=== PATIENT | male | born 1985 | race Caucasian/White ===

== ENCOUNTER 2017-08-08 16:06 | Observation (INO) ==
[2017-08-08] MEDS ORDERED: 0.9 % Sodium Chloride 1,000 ML IVC ONE (16:43)
--- NOTE | 2017-08-08 16:45 | Emergency Department Note ---
Disposition Clinical Impression: Suicidal ideation Depression Qualifiers: Depression Type: major depressive disorder Major depression recurrence: recurrent Active/Remission status: remission status unspecified Qualified Code(s ): F33.9 - Major depressive disorder, recurrent, unspecified Elevated ETOH level Qualifiers: Blood alcohol level: 120-199 mg/100 ml Qualified Code(s): Y90.6 - Blood alcohol level of 120-199 mg/100 ml Disposition: Still a Patient Condition: Serious Referrals: NONE,PCP [Primary Care Provider] - Joel Fitzgerald [Family Provider] - Forms: ED Satisfaction Letter Time of Disposition: 22:46 Psych HPI - General Chief Complaint: ED Psychiatric Symptoms Stated Complaint: SI Time Seen by Provider: 08/08/17 16:30 Source: patient Nursing Notes Reviewed: Yes Vital Signs Reviewed: Yes - History of Present Illness HPI Narrative: 31-year-old male comes emergency Department due to suicidal ideations. Has history of bipolar disorder and schizophrenia. He has been off his medications for several months and admits to daily alcohol use drinking upwards of 30 beers a day and using methamphetamine frequently. Last methamphetamine use was 2 days ago. His last alcoholic beverage was at 2 AM. He reports feeling like he wants to kill himself by jumping off a bridge. No direct access to weapons. He denies any recent toxic ingestions. Pt complaint: suicidal ideation, feels depressed If medical clearance, reason: psychiatric condition Onset (ago): day(s) Duration: constant History of similar episodes: Yes Improves with: none Worsens with: alcohol, drug use Context: recent alcohol abuse, recent drug abuse Alleged intoxication: No Associated Psychiatric Symptoms: suicidal ideation, anxiety Associated symptoms: Reports: denies other symptoms Traumatic symptoms: denies traumatic injury Treatments prior to arrival: none Self harm or harm to others: admits thoughts of self harm, has plan Details of Plan: Jumping from a height - Related Data Allergies Allergy/AdvReac Type Severity Reaction Status Date / Time No Known Allergies Allergy Verified 08/08/17 16:20 All systems ED: reviewed and negative except as stated. Constitutional: Denies: fever, chills Cardiovascular: Denies: chest pain, palpitations Respiratory: Denies: cough, dyspnea Gastrointestinal: Denies: abdominal pain, nausea Psychiatric: Reports: anxiety Past Medical History - Past Medical History Attestation: Yes The following information was validated with the patient. Medical history: Reports: no medical history Psychiatric history: Reports: anxiety, bipolar, depression, schizophrenia - Social History Smoking Status: Current every day smoker Smokeless Tobacco Status: No Alcohol use: Reports: occasionally Drug use: Reports: methamphetamine Physical Exam Appears anxious - General Limitations: no limitations General appearance: alert, in no apparent distress - Head Head exam: atraumatic, normocephalic - Eye Eye exam: Present: normal appearance, PERRL - ENT ENT exam: normal exam, mucous membranes dry - Neck Neck exam: Present: normal inspection, full ROM. Absent: tenderness - Chest Chest inspection: Absent: normal inspection - Respiratory Respiratory exam: Present: normal lung sounds bilaterally, respiratory distress. Absent: wheezes - Cardiovascular Cardiovascular exam: Present: tachycardia. Absent: regular rate - Abdominal Exam Abdominal exam: Present: soft, Non-Tender. Absent: tenderness - Extremities Exam Extremities exam: Present: normal capillary refill - Neurological Exam Neurological exam: Present: alert, oriented X3 - Psychiatric Psychiatric exam: Present: agitated, anxious - Skin Skin exam: Present: warm, dry Course - Reevaluation(s) Reevaluation #1: Alcohol level is now down to 42. His initial CIWA score was 10. We will repeat the CIWA now and if it is stable or lower and will pursue psychiatric admission. If this or is climbing then will plan on medical admission to monitor for DTs Time: 21:31 Reevaluation #2: CIWA score now 7 Awaiting 1A evaluation Time: 21:54 Reevaluation #3: Awaiting placement for psychiatric admission Time: 22:46 Vital Signs Temperature 98.8 F 08/08/17 16:17 Pulse Rate 137 08/08/17 16:17 Respiratory Rate 18 08/08/17 16:17 Blood Pressure 148/95 08/08/17 16:17 O2 Sat by Pulse Oximetry 96 08/08/17 16:17 Temperature 98.1 F 08/08/17 18:18 Pulse Rate 122 08/08/17 18:18 Respiratory Rate 18 08/08/17 18:18 Blood Pressure 142/89 08/08/17 18:18 O2 Sat by Pulse Oximetry 96 08/08/17 18:18 Oxygen Delivery Oxygen Delivery Room Air Psych - Lab Data Result diagrams: 08/08/17 16:38 08/08/17 16:38 Lab Results 08/08/17 08/08/17 08/08/17 Range/Units 16:30 16:30 16:38 WBC 15.1 H (4.3-11.1) K/mcL RBC 5.52 H (4.19-5.50) M/mcL Hgb 15.4 (12.9-16.9) g/dL Hct 46.6 (37.5-50.1) % MCV 84.4 (83.0-100.0) fL MCH 27.9 L (28.0-33.3) pg MCHC 33.0 (31.6-35.5) g/dL RDW 13.9 (11.5-14.5) % Plt Count 464 H (140-400) K/mcL MPV 9.2 L (9.4-12.4) fL Immature Gran % 0.4 (0-4) % Seg Neutrophils % 65.1 % Lymphocytes % 24.7 % Monocytes % 5.4 % Eosinophils % 3.1 % Basophils % 1.3 % Neutrophils # 9.9 H (1.6-8.9) K/mcL Lymphocytes # 3.7 (0.6-4.6) K/mcL Monocytes # 0.8 (0.0-1.3) K/mcL Eosinophils # 0.5 (0.0-0.6) K/mcL Basophils # 0.2 (0.0-0.2) K/mcL Sodium (136-145) mEq/L Potassium (3.5-4.5) mEq/L Chloride (98-109) mEq/L Carbon Dioxide (19-29) mEq/L BUN (8-26) mg/dL Creatinine (0.72-1.25) mg/dL Est GFR ( Amer) (> 60) Est GFR (Non-Af Amer) (> 60) BUN/Creatinine Ratio (6-26) Glucose (70-99) mg/dL Calculated Osmolality (280-300) Calcium (8.6-10.8) mg/dL Magnesium (1.6-2.6) mg/dL Urine Color Yellow (Yellow) Urine Clarity Clear (Clear) Urine pH 6.0 (5.0-8.0) pH Units Ur Specific [place] 1.015 (1.010-1.025) Urine Protein Negative (Neg-Trace) mg/dL Urine Glucose (UA) Normal (Normal) mg/dL Urine Ketones Negative (Negative) mg/dL Urine Blood Negative (Negative) Urine Nitrite Negative (Negative) Urine Bilirubin Negative (Negative) Urine Urobilinogen Normal (Normal) mg/dL Ur Leukocyte Esterase Negative (Negative) Salicylates (15-30) mg/dL Urine Opiates Screen Negative (Uvajng=923) ng/mL Acetaminophen (10-30) mcg/mL Ur Barbiturates Screen Negative (Laikqt=619) ng/mL Ur Phencyclidine Scrn Negative (Cutoff=25) ng/mL Ur Amphetamines Screen Negative (Aexksi=6354) ng/mL U Benzodiazepines Scrn Negative (Zywqgv=637) ng/mL Urine Cocaine Screen Negative (Cutoff= 300) ng/mL U Marijuana (THC) Screen Negative (Cutoff = 50) ng/mL Ethyl Alcohol (0-10) mg/dL 08/08/17 08/08/17 Range/Units 16:38 20:58 WBC (4.3-11.1) K/mcL RBC (4.19-5.50) M/mcL Hgb (12.9-16.9) g/dL Hct (37.5-50.1) % MCV (83.0-100.0) fL MCH (28.0-33.3) pg MCHC (31.6-35.5) g/dL RDW (11.5-14.5) % Plt Count (140-400) K/mcL MPV (9.4-12.4) fL Immature Gran % (0-4) % Seg Neutrophils % % Lymphocytes % % Monocytes % % Eosinophils % % Basophils % % Neutrophils # (1.6-8.9) K/mcL Lymphocytes # (0.6-4.6) K/mcL Monocytes # (0.0-1.3) K/mcL Eosinophils # (0.0-0.6) K/mcL Basophils # (0.0-0.2) K/mcL Sodium 142 (136-145) mEq/L Potassium 3.7 (3.5-4.5) mEq/L Chloride 105 (98-109) mEq/L Carbon Dioxide 26 (19-29) mEq/L BUN 11 (8-26) mg/dL Creatinine 0.75 (0.72-1.25) mg/dL Est GFR ( Amer) > 60 (> 60) Est GFR (Non-Af Amer) > 60 (> 60) BUN/Creatinine Ratio 15 (6-26) Glucose 132 H (70-99) mg/dL Calculated Osmolality 295 (280-300) Calcium 9.4 (8.6-10.8) mg/dL Magnesium 2.4 (1.6-2.6) mg/dL Urine Color (Yellow) Urine Clarity (Clear) Urine pH (5.0-8.0) pH Units Ur Specific [place] (1.010-1.025) Urine Protein (Neg-Trace) mg/dL Urine Glucose (UA) (Normal) mg/dL Urine Ketones (Negative) mg/dL Urine Blood (Negative) Urine Nitrite (Negative) Urine Bilirubin (Negative) Urine Urobilinogen (Normal) mg/dL Ur Leukocyte Esterase (Negative) Salicylates < 5.0 L (15-30) mg/dL Urine Opiates Screen (Akcthp=408) ng/mL Acetaminophen < 1.0 L (10-30) mcg/mL Ur Barbiturates Screen (Klogpj=770) ng/mL Ur Phencyclidine Scrn (Cutoff=25) ng/mL Ur Amphetamines Screen (Yjnptp=5659) ng/mL U Benzodiazepines Scrn (Cvxyhz=057) ng/mL Urine Cocaine Screen (Cutoff= 300) ng/mL U Marijuana (THC) Screen (Cutoff = 50) ng/mL Ethyl Alcohol 183 H 42 H (0-10) mg/dL Psychiatric Medical Clearance - Medical Clearance Checklist Medical History: Suicidal ideation (Acute) Depression (Acute) Elevated ETOH level (Acute) No Social History Section defined Current Vitals: Last Vital Signs Temp 98.1 F 08/08/17 18:18 Pulse 122 08/08/17 18:18 Resp 18 08/08/17 18:18 BP 142/89 08/08/17 18:18 Pulse Ox 96 08/08/17 18:18 Psychiatric Lab Panel: Drug Levels and Toxicity 08/08/17 08/08/17 08/08/17 16:30 16:38 20:58 Urine Opiates Screen Negative Acetaminophen < 1.0 L Ur Barbiturates Screen Negative Ur Phencyclidine Scrn Negative Ur Amphetamines Screen Negative U Benzodiazepines Scrn Negative Urine Cocaine Screen Negative U Marijuana (THC) Screen Negative Ethyl Alcohol 183 H 42 H Abnormal Labs: Abnormal lab results WBC 15.1 K/mcL (4.3-11.1) H 08/08/17 16:38 RBC 5.52 M/mcL (4.19-5.50) H 08/08/17 16:38 MCH 27.9 pg (28.0-33.3) L 08/08/17 16:38 Plt Count 464 K/mcL (140-400) H 08/08/17 16:38 MPV 9.2 fL (9.4-12.4) L 08/08/17 16:38 Neutrophils # 9.9 K/mcL (1.6-8.9) H 08/08/17 16:38 Glucose 132 mg/dL (70-99) H 08/08/17 16:38 Salicylates < 5.0 mg/dL (15-30) L 08/08/17 16:38 Acetaminophen < 1.0 mcg/mL (10-30) L 08/08/17 16:38 Ethyl Alcohol 42 mg/dL (0-10) H 08/08/17 20:58 Statement of Medical Clearance: I have evaluated the patient, reviewed diagnostic information, and certify that the patient's medical condition is sufficiently stable that transfer to the psychiatric unit does not pose a significant risk of deterioration. Alcohol - Lab Data Result diagrams: 08/08/17 16:38 08/08/17 16:38 Lab Results 08/08/17 08/08/17 08/08/17 Range/Units 16:30 16:30 16:38 WBC 15.1 H (4.3-11.1) K/mcL RBC 5.52 H (4.19-5.50) M/mcL Hgb 15.4 (12.9-16.9) g/dL Hct 46.6 (37.5-50.1) % MCV 84.4 (83.0-100.0) fL MCH 27.9 L (28.0-33.3) pg MCHC 33.0 (31.6-35.5) g/dL RDW 13.9 (11.5-14.5) % Plt Count 464 H (140-400) K/mcL MPV 9.2 L (9.4-12.4) fL Immature Gran % 0.4 (0-4) % Seg Neutrophils % 65.1 % Lymphocytes % 24.7 % Monocytes % 5.4 % Eosinophils % 3.1 % Basophils % 1.3 % Neutrophils # 9.9 H (1.6-8.9) K/mcL Lymphocytes # 3.7 (0.6-4.6) K/mcL Monocytes # 0.8 (0.0-1.3) K/mcL Eosinophils # 0.5 (0.0-0.6) K/mcL Basophils # 0.2 (0.0-0.2) K/mcL Sodium (136-145) mEq/L Potassium (3.5-4.5) mEq/L Chloride (98-109) mEq/L Carbon Dioxide (19-29) mEq/L BUN (8-26) mg/dL Creatinine (0.72-1.25) mg/dL Est GFR ( Amer) (> 60) Est GFR (Non-Af Amer) (> 60) BUN/Creatinine Ratio (6-26) Glucose (70-99) mg/dL Calculated Osmolality (280-300) Calcium (8.6-10.8) mg/dL Magnesium (1.6-2.6) mg/dL Urine Color Yellow (Yellow) Urine Clarity Clear (Clear) Urine pH 6.0 (5.0-8.0) pH Units Ur Specific [place] 1.015 (1.010-1.025) Urine Protein Negative (Neg-Trace) mg/dL Urine Glucose (UA) Normal (Normal) mg/dL Urine Ketones Negative (Negative) mg/dL Urine Blood Negative (Negative) Urine Nitrite Negative (Negative) Urine Bilirubin Negative (Negative) Urine Urobilinogen Normal (Normal) mg/dL Ur Leukocyte Esterase Negative (Negative) Salicylates (15-30) mg/dL Urine Opiates Screen Negative (Lizjvn=687) ng/mL Acetaminophen (10-30) mcg/mL Ur Barbiturates Screen Negative (Ajupqa=869) ng/mL Ur Phencyclidine Scrn Negative (Cutoff=25) ng/mL Ur Amphetamines Screen Negative (Izsmnu=7067) ng/mL U Benzodiazepines Scrn Negative (Yyxanl=209) ng/mL Urine Cocaine Screen Negative (Cutoff= 300) ng/mL U Marijuana (THC) Screen Negative (Cutoff = 50) ng/mL Ethyl Alcohol (0-10) mg/dL 08/08/17 08/08/17 Range/Units 16:38 20:58 WBC (4.3-11.1) K/mcL RBC (4.19-5.50) M/mcL Hgb (12.9-16.9) g/dL Hct (37.5-50.1) % MCV (83.0-100.0) fL MCH (28.0-33.3) pg MCHC (31.6-35.5) g/dL RDW (11.5-14.5) % Plt Count (140-400) K/mcL MPV (9.4-12.4) fL Immature Gran % (0-4) % Seg Neutrophils % % Lymphocytes % % Monocytes % % Eosinophils % % Basophils % % Neutrophils # (1.6-8.9) K/mcL Lymphocytes # (0.6-4.6) K/mcL Monocytes # (0.0-1.3) K/mcL Eosinophils # (0.0-0.6) K/mcL Basophils # (0.0-0.2) K/mcL Sodium 142 (136-145) mEq/L Potassium 3.7 (3.5-4.5) mEq/L Chloride 105 (98-109) mEq/L Carbon Dioxide 26 (19-29) mEq/L BUN 11 (8-26) mg/dL Creatinine 0.75 (0.72-1.25) mg/dL Est GFR ( Amer) > 60 (> 60) Est GFR (Non-Af Amer) > 60 (> 60) BUN/Creatinine Ratio 15 (6-26) Glucose 132 H (70-99) mg/dL Calculated Osmolality 295 (280-300) Calcium 9.4 (8.6-10.8) mg/dL Magnesium 2.4 (1.6-2.6) mg/dL Urine Color (Yellow) Urine Clarity (Clear) Urine pH (5.0-8.0) pH Units Ur Specific [place] (1.010-1.025) Urine Protein (Neg-Trace) mg/dL Urine Glucose (UA) (Normal) mg/dL Urine Ketones (Negative) mg/dL Urine Blood (Negative) Urine Nitrite (Negative) Urine Bilirubin (Negative) Urine Urobilinogen (Normal) mg/dL Ur Leukocyte Esterase (Negative) Salicylates < 5.0 L (15-30) mg/dL Urine Opiates Screen (Evxvvc=601) ng/mL Acetaminophen < 1.0 L (10-30) mcg/mL Ur Barbiturates Screen (Idyhre=823) ng/mL Ur Phencyclidine Scrn (Cutoff=25) ng/mL Ur Amphetamines Screen (Ueujte=1368) ng/mL U Benzodiazepines Scrn (Huavpr=332) ng/mL Urine Cocaine Screen (Cutoff= 300) ng/mL U Marijuana (THC) Screen (Cutoff = 50) ng/mL Ethyl Alcohol 183 H 42 H (0-10) mg/dL
[2017-08-08 16:46] LABS: Basophils # 0.2 K/mcL (0.0-0.2); Basophils % 1.3 %; Eosinophils # 0.5 K/mcL (0.0-0.6); Eosinophils % 3.1 %; Hematocrit 46.6 % (37.5-50.1); Hemoglobin 15.4 g/dL (12.9-16.9); Immature Granulocytes % 0.4 % (0-4); Lymphocytes # 3.7 K/mcL (0.6-4.6); Lymphocytes % 24.7 %; Mean Corpuscular Hemoglobin 27.9 pg (28.0-33.3); Mean Corpuscular Volume 84.4 fL (83.0-100.0); Mean Platelet Volume 9.2 fL (9.4-12.4); Monocytes # 0.8 K/mcL (0.0-1.3); Monocytes % 5.4 %; Neutrophils # 9.9 K/mcL (1.6-8.9); Platelet Count 464 K/mcL (140-400); Red Blood Count 5.52 M/mcL (4.19-5.50); Red Cell Distribution Width 13.9 % (11.5-14.5); Segmented Neutrophils % 65.1 %
[2017-08-08 16:47] LABS: Bilirubin,Urine Negative (Negative); Blood,Urine Negative (Negative); Clarity,Urine Clear (Clear); Color,Urine Yellow (Yellow); Glucose,Urine (UA) Normal (Normal); Ketones,Urine Negative (Negative); Leukocyte Esterase,Urine Negative (Negative); Nitrite,Urine Negative (Negative); Protein,Urine Negative (Neg-Trace); Specific Gravity,Urine 1.015 (1.010-1.025); Urobilinogen,Urine Normal (Normal)
[2017-08-08] MEDS ORDERED: Magnesium Sulfate 2 GM in D5% in Water 100 ML IVPB ONE (16:51)
[2017-08-08] MEDS ORDERED: Thiamine (B-1) 100 MG in D5% in Water 50 ML IVPB ONE (16:51)
[2017-08-08] MEDS ORDERED: Folic Acid 1 MG TABLET PO STA (16:51)
[2017-08-08 16:53] LABS: Amphetamine Screen,Urine Negative ng/mL (Cutoff=1000); Barbiturate Screen,Urine Negative ng/mL (Cutoff=200); Benzodiazepines Screen,Urine Negative ng/mL (Cutoff=200); Cannabinoid Screen,Urine Negative ng/mL (Cutoff = 50); Cocaine Screen,Urine Negative ng/mL (Cutoff= 300); Opiate Screen,Urine Negative ng/mL (Cutoff=300); Phencyclidine Screen,Urine Negative ng/mL (Cutoff=25)
[2017-08-08 16:59] LABS: BUN/Creatinine Ratio 15 (6-26); Blood Urea Nitrogen 11 mg/dL (8-26); Calcium 9.4 mg/dL (8.6-10.8); Carbon Dioxide 26 mEq/L (19-29); Chloride 105 mEq/L (98-109); Ethanol 183 mg/dL (0-10); Glucose 132 mg/dL (70-99); Osmolality,Calculated 295 (280-300); Potassium 3.7 mEq/L (3.5-4.5); Sodium 142 mEq/L (136-145); eGFR For African Americans > 60 (> 60); eGFR For Non-African Americans > 60 (> 60)
[2017-08-08 17:03] LABS: Acetaminophen < 1.0 mcg/mL (10-30); Salicylate < 5.0 mg/dL (15-30)
[2017-08-08 17:10] LABS: Magnesium 2.4 mg/dL (1.6-2.6)
[2017-08-08] MEDS ORDERED: Ringers Solution, Lactated 1,000 ML IVC ONE (18:00)
--- NOTE | 2017-08-08 18:03 | Emergency Department Note ---
Disposition Clinical Impression: Suicidal ideation Depression Qualifiers: Depression Type: major depressive disorder Major depression recurrence: recurrent Active/Remission status: remission status unspecified Qualified Code(s ): F33.9 - Major depressive disorder, recurrent, unspecified Elevated ETOH level Qualifiers: Blood alcohol level: 120-199 mg/100 ml Qualified Code(s): Y90.6 - Blood alcohol level of 120-199 mg/100 ml Disposition: Still a Patient Condition: Serious Referrals: NONE,PCP [Primary Care Provider] - Joel Fitzgerald [Family Provider] - Forms: ED Satisfaction Letter Time of Disposition: 21:17 Psych HPI - General Chief Complaint: ED Psychiatric Symptoms Stated Complaint: SI Time Seen by Provider: 08/08/17 16:30 Source: patient Nursing Notes Reviewed: Yes Vital Signs Reviewed: Yes - History of Present Illness HPI Narrative: 31-year-old male complains of depression and suicide ideation 2 days. Patient states he feels severely depressed and wants to end it all. Patient states he does not have a plan and seeking help. Patient states he is off his medications and drinks alcohol when he is not on his medications. Patient states he is drinking excessively and does not seem to be helping him Patient denies illicit drug use Pt complaint: suicidal ideation, feels depressed Duration: constant Improves with: none Worsens with: alcohol, drug use Associated symptoms: Reports: denies other symptoms Treatments prior to arrival: none - Related Data Allergies Allergy/AdvReac Type Severity Reaction Status Date / Time No Known Allergies Allergy Verified 08/08/17 16:20 All systems ED: reviewed and negative except as stated. Review of Systems: As Per HPI Constitutional: Denies: fever, chills Cardiovascular: Denies: chest pain, palpitations Respiratory: Denies: cough, dyspnea Gastrointestinal: Denies: abdominal pain, nausea Psychiatric: Reports: anxiety Past Medical History - Past Medical History Attestation: Yes The following information was validated with the patient. Source: patient, nursing notes reviewed Medical history: Reports: no medical history Psychiatric history: Reports: anxiety, bipolar, depression, schizophrenia - Social History Smoking Status: Current every day smoker Smokeless Tobacco Status: No Alcohol use: Reports: occasionally Drug use: Reports: methamphetamine Physical Exam Vital Signs Temperature 98.8 F 08/08/17 16:17 Pulse Rate 137 08/08/17 16:17 Respiratory Rate 18 08/08/17 16:17 Blood Pressure 148/95 08/08/17 16:17 O2 Sat by Pulse Oximetry 96 08/08/17 16:17 Temperature 98.8 F 08/08/17 16:17 Pulse Rate 129 08/08/17 17:19 Respiratory Rate 18 08/08/17 17:19 Blood Pressure 157/93 08/08/17 17:19 O2 Sat by Pulse Oximetry 93 08/08/17 17:19 Oxygen Delivery Oxygen Delivery Room Air 31-year-old male who is alert and oriented 3 and in no acute distress. Patient has tachycardia 137 beats minute - General Limitations: no limitations General appearance: alert, in no apparent distress - Head Head exam: atraumatic, normocephalic, normal inspection - Eye Eye exam: Present: normal appearance, PERRL, EOMI. Absent: scleral icterus - ENT ENT exam: normal exam, normal oropharynx, mucous membranes moist - Neck Neck exam: Present: normal inspection, full ROM, trachea midline - Chest Chest inspection: Present: normal inspection, symmetric chest wall rise. Absent : tenderness, rash - Respiratory Respiratory exam: Present: normal lung sounds bilaterally - Abdominal Exam Abdominal exam: Present: soft, Non-Tender. Absent: tenderness, distention, guarding, rebound, rigidity - Extremities Exam Extremities exam: Present: normal capillary refill Course Vital Signs Temperature 98.8 F 08/08/17 16:17 Pulse Rate 137 08/08/17 16:17 Respiratory Rate 18 08/08/17 16:17 Blood Pressure 148/95 08/08/17 16:17 O2 Sat by Pulse Oximetry 96 08/08/17 16:17 Temperature 98.1 F 08/08/17 18:18 Pulse Rate 122 08/08/17 18:18 Respiratory Rate 18 08/08/17 18:18 Blood Pressure 142/89 08/08/17 18:18 O2 Sat by Pulse Oximetry 96 08/08/17 18:18 Oxygen Delivery Oxygen Delivery Room Air Psych - MDM Narrative Medical decision making narrative: Depression and suicide ideation. Patient has medical clearance labs ordered. Ethanol level elevated at 183. Patient started on IV hydration, given 2 g magnesium and thiamine. CIWA assessment initiated. Score of 10 and was administered 0.5 mg Ativan. Patient will be monitored continually until his blood alcohol level gets below 80. Recheck ethanol level 42. Patient is clear for 1a evaluation - Lab Data Result diagrams: 08/08/17 16:38 08/08/17 16:38 Lab Results 08/08/17 08/08/17 08/08/17 Range/Units 16:30 16:30 16:38 WBC 15.1 H (4.3-11.1) K/mcL RBC 5.52 H (4.19-5.50) M/mcL Hgb 15.4 (12.9-16.9) g/dL Hct 46.6 (37.5-50.1) % MCV 84.4 (83.0-100.0) fL MCH 27.9 L (28.0-33.3) pg MCHC 33.0 (31.6-35.5) g/dL RDW 13.9 (11.5-14.5) % Plt Count 464 H (140-400) K/mcL MPV 9.2 L (9.4-12.4) fL Immature Gran % 0.4 (0-4) % Seg Neutrophils % 65.1 % Lymphocytes % 24.7 % Monocytes % 5.4 % Eosinophils % 3.1 % Basophils % 1.3 % Neutrophils # 9.9 H (1.6-8.9) K/mcL Lymphocytes # 3.7 (0.6-4.6) K/mcL Monocytes # 0.8 (0.0-1.3) K/mcL Eosinophils # 0.5 (0.0-0.6) K/mcL Basophils # 0.2 (0.0-0.2) K/mcL Sodium (136-145) mEq/L Potassium (3.5-4.5) mEq/L Chloride (98-109) mEq/L Carbon Dioxide (19-29) mEq/L BUN (8-26) mg/dL Creatinine (0.72-1.25) mg/dL Est GFR ( Amer) (> 60) Est GFR (Non-Af Amer) (> 60) BUN/Creatinine Ratio (6-26) Glucose (70-99) mg/dL Calculated Osmolality (280-300) Calcium (8.6-10.8) mg/dL Magnesium (1.6-2.6) mg/dL Urine Color Yellow (Yellow) Urine Clarity Clear (Clear) Urine pH 6.0 (5.0-8.0) pH Units Ur Specific [place] 1.015 (1.010-1.025) Urine Protein Negative (Neg-Trace) mg/dL Urine Glucose (UA) Normal (Normal) mg/dL Urine Ketones Negative (Negative) mg/dL Urine Blood Negative (Negative) Urine Nitrite Negative (Negative) Urine Bilirubin Negative (Negative) Urine Urobilinogen Normal (Normal) mg/dL Ur Leukocyte Esterase Negative (Negative) Salicylates (15-30) mg/dL Urine Opiates Screen Negative (Xubkub=489) ng/mL Acetaminophen (10-30) mcg/mL Ur Barbiturates Screen Negative (Tcszad=432) ng/mL Ur Phencyclidine Scrn Negative (Cutoff=25) ng/mL Ur Amphetamines Screen Negative (Mztxmb=6524) ng/mL U Benzodiazepines Scrn Negative (Owbvgo=282) ng/mL Urine Cocaine Screen Negative (Cutoff= 300) ng/mL U Marijuana (THC) Screen Negative (Cutoff = 50) ng/mL Ethyl Alcohol (0-10) mg/dL 08/08/17 08/08/17 Range/Units 16:38 20:58 WBC (4.3-11.1) K/mcL RBC (4.19-5.50) M/mcL Hgb (12.9-16.9) g/dL Hct (37.5-50.1) % MCV (83.0-100.0) fL MCH (28.0-33.3) pg MCHC (31.6-35.5) g/dL RDW (11.5-14.5) % Plt Count (140-400) K/mcL MPV (9.4-12.4) fL Immature Gran % (0-4) % Seg Neutrophils % % Lymphocytes % % Monocytes % % Eosinophils % % Basophils % % Neutrophils # (1.6-8.9) K/mcL Lymphocytes # (0.6-4.6) K/mcL Monocytes # (0.0-1.3) K/mcL Eosinophils # (0.0-0.6) K/mcL Basophils # (0.0-0.2) K/mcL Sodium 142 (136-145) mEq/L Potassium 3.7 (3.5-4.5) mEq/L Chloride 105 (98-109) mEq/L Carbon Dioxide 26 (19-29) mEq/L BUN 11 (8-26) mg/dL Creatinine 0.75 (0.72-1.25) mg/dL Est GFR ( Amer) > 60 (> 60) Est GFR (Non-Af Amer) > 60 (> 60) BUN/Creatinine Ratio 15 (6-26) Glucose 132 H (70-99) mg/dL Calculated Osmolality 295 (280-300) Calcium 9.4 (8.6-10.8) mg/dL Magnesium 2.4 (1.6-2.6) mg/dL Urine Color (Yellow) Urine Clarity (Clear) Urine pH (5.0-8.0) pH Units Ur Specific [place] (1.010-1.025) Urine Protein (Neg-Trace) mg/dL Urine Glucose (UA) (Normal) mg/dL Urine Ketones (Negative) mg/dL Urine Blood (Negative) Urine Nitrite (Negative) Urine Bilirubin (Negative) Urine Urobilinogen (Normal) mg/dL Ur Leukocyte Esterase (Negative) Salicylates < 5.0 L (15-30) mg/dL Urine Opiates Screen (Zvxynf=095) ng/mL Acetaminophen < 1.0 L (10-30) mcg/mL Ur Barbiturates Screen (Symxoj=255) ng/mL Ur Phencyclidine Scrn (Cutoff=25) ng/mL Ur Amphetamines Screen (Tpdfml=7426) ng/mL U Benzodiazepines Scrn (Qhhivq=885) ng/mL Urine Cocaine Screen (Cutoff= 300) ng/mL U Marijuana (THC) Screen (Cutoff = 50) ng/mL Ethyl Alcohol 183 H 42 H (0-10) mg/dL Psychiatric Medical Clearance - Medical Clearance Checklist Medical History: Suicidal ideation (Acute) Depression (Acute) Elevated ETOH level (Acute) No Social History Section defined Current Vitals: Last Vital Signs Temp 98.1 F 08/08/17 18:18 Pulse 122 08/08/17 18:18 Resp 18 08/08/17 18:18 BP 142/89 08/08/17 18:18 Pulse Ox 96 08/08/17 18:18 Psychiatric Lab Panel: Drug Levels and Toxicity 08/08/17 08/08/17 08/08/17 16:30 16:38 20:58 Urine Opiates Screen Negative Acetaminophen < 1.0 L Ur Barbiturates Screen Negative Ur Phencyclidine Scrn Negative Ur Amphetamines Screen Negative U Benzodiazepines Scrn Negative Urine Cocaine Screen Negative U Marijuana (THC) Screen Negative Ethyl Alcohol 183 H 42 H Abnormal Labs: Abnormal lab results WBC 15.1 K/mcL (4.3-11.1) H 08/08/17 16:38 RBC 5.52 M/mcL (4.19-5.50) H 08/08/17 16:38 MCH 27.9 pg (28.0-33.3) L 08/08/17 16:38 Plt Count 464 K/mcL (140-400) H 08/08/17 16:38 MPV 9.2 fL (9.4-12.4) L 08/08/17 16:38 Neutrophils # 9.9 K/mcL (1.6-8.9) H 08/08/17 16:38 Glucose 132 mg/dL (70-99) H 08/08/17 16:38 Salicylates < 5.0 mg/dL (15-30) L 08/08/17 16:38 Acetaminophen < 1.0 mcg/mL (10-30) L 08/08/17 16:38 Ethyl Alcohol 42 mg/dL (0-10) H 08/08/17 20:58 Attestation Statement - Attestation Attestation: I examined this patient and my medical decision-making was reviewed with the Resident Physician. I agree with the documented findings, disposition and treatment plan as described except to the extent set forth below.
[2017-08-08] MEDS ORDERED: *HR* LORazepam 2 MG/ML VIAL IVP ONE (18:49)
[2017-08-09] MEDS ORDERED: Ondansetron 4 MG/2 ML VIAL IVP PRN (05:47)
[2017-08-09] MEDS ORDERED: Acetaminophen 325 MG TABLET PO PRN (05:47)
[2017-08-09] MEDS ORDERED: Naloxone 0.4 MG/ML INJ IVP PRN (05:47)
[2017-08-09] MEDS ORDERED: Mag Hydrox/Al Hydrox/Simeth 30 ML UDC PO PRN (05:47)
[2017-08-09] MEDS: 0.9 % Sodium Chloride 1,000 ML IVC SCH ×2 (06:37→18:13)
--- NOTE | 2017-08-09 08:11 | Internal Med History&Physical ---
Date of Encounter: 08/09/17 Time of Encounter: 08:09 Assessment and Plan (1) Alcohol intoxication Current visit: Yes Status: Acute Blood alcohol level 180 on presentation. Trending down now. Continue supportive care with IV hydration. Multivitamins. Monitor for withdrawal. Moderate risk for complications. Qualifiers: Complication of substance-induced condition: uncomplicated Qualified Code(s ): F10.920 - Alcohol use, unspecified with intoxication, uncomplicated (2) Depression Current visit: Yes Status: Acute Patient appears depressed. He has not been on his medications for about 6 months. Consult psychiatry. Qualifiers: Depression Type: major depressive disorder Major depression recurrence: recurrent Active/Remission status: currently active Major depression episode severity: severe Psychotic features: without psychotic features Qualified Code(s): F33.2 - Major depressive disorder, recurrent severe without psychotic features (3) Suicidal ideation Current visit: Yes Status: Acute Consulted psychiatry for evaluation to see if patient needs admission to inpatient psych unit. Remains suicidal and depressed. Internal Medicine - H&P: HPI Chief complaint: Suicidal ideation Admitted From: Emergency Dept Plans for Post Hospital Care: Home History of present illness: Mr. Rosas is a 31 year old male patient with history of depression and prior suicidal attempt who has not been on his medications for at least 6 months presented to the ER with complaints of alcohol intoxication and suicidal ideation. Patient has been drinking heavily in the recent weeks. He denies any active plan but has been having thoughts of harming himself. He denies any hallucinations. Does have some tremors. No abdominal pain. No nausea or vomiting. Has a history of methamphetamine abuse. Last use was about 2-3 days back. Past Med Surg Social Fam HX - Past Medical History Attestation: Yes The following information was validated with the patient. Source: patient Medical history: no medical history, other (Psoriasis for which he takes etanercept) Psychiatric history: anxiety, bipolar, depression, prior suicide attempt, schizophrenia, previous psychiatric hospitalization - Social History Smoking Status: Current every day smoker Packs per day: 3 Smokeless Tobacco Status: No Alcohol use: heavy Drug use: methamphetamine - Family History Mother Living Status: Still Living Father Living Status: Still Living - Additional Family History Additional family history: Reviewed and found to be noncontributory at this time Internal Medicine - H&P: Meds Etanercept [Enbrel] 50 mg SQ QWEEK 08/09/17 [History] 3 Allergy/AdvReac Type Severity Reaction Status Date / Time No Known Allergies Allergy Verified 08/08/17 16:20 All Systems PM: A 10-system review of systems was performed and is negative for pertinent findings except as documented above in the HPI. - Constitutional Constitutional: no chills, no fever(s), no night sweats - EENT Eyes: no change in vision, no discharge, no pain, no photophobia Ears: no ear discharge, no ear pain, no tinnitus Nose, mouth and throat: no dysphagia, no nasal discharge, no neck pain, no sore throat - Cardiovascular Cardiovascular ROS IM: no chest pain, no diaphoresis, no dyspnea, no lightheadedness, no palpitations, no syncope - Respiratory Respiratory: no cough, no dyspnea, no wheezing, no excessive phlegm production - Gastrointestinal Gastrointestinal: no abdominal pain, no diarrhea, no hematemesis, no hematochezia, no melena, no nausea, no vomiting - Musculoskeletal Musculoskeletal ROS IM: no numbness, no tingling - Integumentary Integumentary IM: no rash, no unusual bruising - Neurological Neurological ROS: no confusion, no convulsions, no focal weakness, no numbness, no tingling, no tremor(s) - Psychiatric Psychiatric: depression, suicidal ideation - Hematologic/Lymphatic Hematologic/Lymphatic: no easy bruising - Constitutional Vitals: Temp Pulse Resp BP Pulse Ox 97.7 F 90 16 143/92 98 08/09/17 03:21 08/09/17 03:21 08/09/17 03:21 08/09/17 03:21 08/09/17 03:21 General appearance: Present: cooperative, A&O X 3, answers questions appropriately - Respiratory Respiratory exam: Present: CTAB. Absent: accessory muscle use, rales, rhonchi, wheezes - Cardiovascular Cardiovascular exam: Present: RRR, +S1, +S2. Absent: diastolic murmur, gallop, rubs, systolic murmur - GI/Abdominal GI/Abdominal exam: Present: normal bowel sounds, soft, no peritoneal signs. Absent: distended, tenderness - Extremities Exam Extremities exam: Present: warm, radial pulses palpable and symmetrical. Absent : calf tenderness, cyanotic, pedal edema - Neurological Exam Neurological exam: Present: alert, CN II-XII intact, oriented X3, no focal deficits. Absent: facial droop, speech deficit - Psychiatric Psychiatric exam: Present: depressed, flat affect, suicidal ideation - Skin Skin exam: Present: dry, intact Internal Med - H&P Results - Labs CBC & Chem 7: 08/08/17 16:38 08/08/17 16:38
[2017-08-09] MEDS: Thiamine (B-1) 100 MG TABLET PO SCH (10:09)
[2017-08-09] MEDS: Folic Acid 1 MG TABLET PO SCH (10:09)
[2017-08-09] MEDS: *HR* LORazepam 2 MG/ML VIAL IVP SCH ×3 (11:57→21:13)
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
--- NOTE | 2017-08-09 17:49 | Electrocardiograph Report ---
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
[2017-08-10 00:06] VITALS: BP 120/69
[2017-08-10] MEDS: *HR* LORazepam 2 MG/ML VIAL IVP SCH ×2 (02:25→05:44)
[2017-08-10 05:07] LABS: Hematocrit 40.5 % (37.5-50.1); Mean Corpuscular HGB Conc 32.8 g/dL (31.6-35.5); Mean Corpuscular Volume 85.3 fL (83.0-100.0); Mean Platelet Volume 9.8 fL (9.4-12.4); Platelet Count 350 K/mcL (140-400); Red Blood Count 4.75 M/mcL (4.19-5.50); Red Cell Distribution Width 13.7 % (11.5-14.5)
[2017-08-10 05:08] LABS: Hemoglobin 13.3 g/dL (12.9-16.9)
[2017-08-10 05:20] LABS: Alanine Aminotransferase 18 Units/L (0-55); Albumin/Globulin Ratio 0.9 (1.1-2.2); Alkaline Phosphatase 56 Units/L (38-126); Aspartate Amino Transferase 15 Units/L (5-34); BUN/Creatinine Ratio 10 (6-26); Bilirubin,Total 0.4 mg/dL (0.2-1.2); Blood Urea Nitrogen 7 mg/dL (8-26); Calcium 8.3 mg/dL (8.6-10.8); Carbon Dioxide 25 mEq/L (19-29); Chloride 108 mEq/L (98-109); Globulin 3.2 g/dL (2.4-3.5); Glucose 97 mg/dL (70-99); Osmolality,Calculated 290 (280-300); Sodium 141 mEq/L (136-145); Total Protein 6.2 g/dL (6.0-8.3); eGFR For African Americans > 60 (> 60); eGFR For Non-African Americans > 60 (> 60)
[2017-08-10] MEDS ORDERED: *HR* LORazepam 2 MG/ML VIAL IVP PRN (07:45)
--- NOTE | 2017-08-10 08:49 | Discharge Summary ---
Date of Encounter: 08/10/17 Time of Encounter: 08:47 - Discharge Diagnosis (1) Alcohol intoxication Priority: Primary Status: Acute Qualifiers: Complication of substance-induced condition: uncomplicated Qualified Code(s ): F10.920 - Alcohol use, unspecified with intoxication, uncomplicated (2) Depression Priority: Secondary Status: Acute Qualifiers: Depression Type: major depressive disorder Major depression recurrence: recurrent Active/Remission status: currently active Major depression episode severity: severe Psychotic features: without psychotic features Qualified Code(s): F33.2 - Major depressive disorder, recurrent severe without psychotic features (3) Suicidal ideation Priority: Secondary Status: Acute - Discharge Medications Home Medications: Etanercept [Enbrel] 50 mg SQ QWEEK 08/09/17 [History] Folic Acid 1 mg PO DAILY 08/10/17 [History] Thiamine (B-1) [Vitamin B-1] 100 mg PO DAILY 08/10/17 [History] Allergies/Adverse Reactions: 3 Allergy/AdvReac Type Severity Reaction Status Date / Time No Known Allergies Allergy Verified 08/08/17 16:20 Date of admission: 08/09/17 02:47 Primary care physician: PCP NONE Consults: 08/09/17 07:54 Consult to Psychiatry [CONS] Routine Consulting Provider: Psychiatry [place] Reason for Consult: Suicidal ideation Call Completed: Yes 08/09/17 08:04 Consult to [place] [CONS] Routine Reason for SW Consult: Alcohol withdrawal Discharging clinician: Thomas Díaz Anticipated date of discharge: 08/10/17 - Patient Status Disposition: Transfer Psychiatric Hosp Condition: Good Functional capacity at discharge: independent ambulation Overall status at discharge: patient is progressing back to baseline - Discharge Instructions Instructions: Depression (DC), Suicide Prevention for Adults (DC) Follow Up With: NONE,PCP [Primary Care Provider] - Joel Fitzgerald [Family Provider] - - Diet and Activity Activity: increase activity as tolerated Diet: advance to your usual diet Hospital course: Mr. Rosas is a 31 year old male patient with history of depression and prior suicidal attempt who has not been taking his medications recently presented to the ER with complaints of alcohol intoxication along with suicidal ideation. Patient had been drinking excessive amounts of alcohol and was having thoughts of harming himself. He was placed under observation and suicide precautions. He was treated with IV hydration and monitor for alcohol withdrawal. He was evaluated by psychiatry and recommended hospitalization to the inpatient psychiatric unit. Currently patient is clinically stable to be discharged from medical floor and to be admitted to inpatient psychiatric unit. Patient did not have significant symptoms of withdrawal from alcohol during his stay here. He remains depressed and continues to harbor suicidal ideation. - Time Spent with Patient Total time spent providing and/or coordinating discharge services: Less than 30 minutes (20 min) - Constitutional Vitals: Temp Pulse Resp BP Pulse Ox 98.6 F 100 16 120/69 96 08/10/17 00:05 08/10/17 00:05 08/10/17 00:05 08/10/17 00:05 08/10/17 00:05 General appearance: Present: cooperative, A&O X 3, answers questions appropriately - Respiratory Respiratory exam: Present: CTAB. Absent: accessory muscle use, rales, rhonchi, wheezes - Cardiovascular Cardiovascular exam: Present: RRR, +S1, +S2. Absent: diastolic murmur, gallop, rubs, systolic murmur - GI/Abdominal GI/Abdominal exam: Present: normal bowel sounds, soft, no peritoneal signs. Absent: distended, tenderness - Extremities Exam Extremities exam: Present: warm, radial pulses palpable and symmetrical. Absent : calf tenderness, cyanotic, pedal edema - Neurological Exam Neurological exam: Present: CN II-XII intact, oriented X3, no focal deficits. Absent: facial droop, speech deficit - Skin Skin exam: Present: dry, intact
[2017-08-10] MEDS: Thiamine (B-1) 100 MG TABLET PO SCH (10:58)
[2017-08-10] MEDS: Folic Acid 1 MG TABLET PO SCH (10:58)
== END 2017-08-10 12:15 ==
LOC: 3BNU 16:06 → EMEROO 16:06 → SUATTDRO 08-09 02:47 → 3BNU 08-09 02:48
PROVIDERS: ADMIT Family Medicine; ATTEND Internal Medicine

== ENCOUNTER 2017-08-10 11:22 | Inpatient (IN) ==
[2017-08-10] MEDS ORDERED: Haloperidol Lactate 5 MG/ML VIAL IM PRN (12:09)
[2017-08-10] MEDS ORDERED: MOM Conc 10 ML UD.LIQ PO PRN (12:09)
[2017-08-10] MEDS ORDERED: Mag Hydrox/Al Hydrox/Simeth 30 ML UDC PO PRN (12:09)
[2017-08-10] MEDS ORDERED: Ibuprofen 400 MG TABLET PO PRN (12:09)
[2017-08-10] MEDS ORDERED: *HR* LORazepam 1 MG TABLET PO PRN (12:09)
[2017-08-10] MEDS ORDERED: *HR* LORazepam 2 MG/ML VIAL IM PRN (12:09)
[2017-08-10] MEDS: Nicotine 21 MG PATCH.TD24 TD SCH (16:40)
[2017-08-11] MEDS: traZODone 50 MG TABLET PO PRN ×2 (01:02→21:35)
[2017-08-11] MEDS: hydrOXYzine pamoate 25 MG CAPSULE PO PRN ×2 (01:02→21:35)
[2017-08-11] MEDS: Nicotine 21 MG PATCH.TD24 TD SCH (09:05)
[2017-08-11] MEDS: Folic Acid 1 MG TABLET PO SCH (09:06)
[2017-08-11] MEDS: Thiamine (B-1) 100 MG TABLET PO SCH (09:07)
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
[2017-08-11] MEDS: OLANZapine 10 MG TAB.RAPDIS PO SCH (21:36)
[2017-08-12] MEDS: Folic Acid 1 MG TABLET PO SCH (08:10)
[2017-08-12] MEDS: Thiamine (B-1) 100 MG TABLET PO SCH (08:10)
[2017-08-12] MEDS: Nicotine 21 MG PATCH.TD24 TD SCH (08:10)
[2017-08-12] MEDS: FLUoxetine 20 MG CAPSULE PO SCH (08:10)
[2017-08-12 08:41] LABS: Hemoglobin A1C 5.6 %
--- NOTE | 2017-08-12 14:04 | Psychiatry Progress Note ---
Date of Encounter: 08/12/17 Time of Encounter: 14:02 Subjective Interval history: Patient still carving for alcohol and they are bad. He is depressed. he has not plans to kill self on unit. He went to the AA Meeting last night. He felt is was helpful. Groups are helpful. Review of Systems Psychiatric: Reports: depression, suicidal ideation, change in appetite, memory loss, difficulty concentrating, hopelessness Objective: Exam Patient orientation: Yes Person, Yes Time, Yes Place Level of alertness: Alert Patient appearance: Appropriate Behavior: nervous, anxious Psychomotor activity: Slowed Eye contact: Minimal Contact Mood description: Depressed, Anxious Affect description: dysphoric Speech pattern: Slowed, Impoverished Speech volume: Soft/Quiet Thought process: Intact Thought content: Yes Intact, Yes Paranoid delusion Judgment: Fair Insight: Partial Results - Vital Signs Vital Signs: Temp Pulse Resp BP 97.8 F 96 16 122/85 08/12/17 09:00 08/12/17 09:00 08/12/17 09:00 08/12/17 09:00 - Labs Labs: Laboratory Results - last 24 hr 08/12/17 08:03 Est Mean Plasma Glucose 114 Hemoglobin A1c 5.6 Assessment and Plan (1) Tobacco use Current visit: Yes Status: Acute Plan: Continue hospitalization Risks, benefits, side effects, alternatives discussed w/pt: Yes Patient agreeable to treatment: No (2) Cocaine dependence, uncomplicated Current visit: Yes Status: Chronic Plan: Continue hospitalization, Suicide Precautions per unit protocol, Encourage participation in unit milieu Additional Plan: find rehabilition Risks, benefits, side effects, alternatives discussed w/pt: Yes Patient agreeable to treatment: Yes (3) Other stimulant dependence, uncomplicated Current visit: Yes Status: Chronic Additional Plan: absiteince Risks, benefits, side effects, alternatives discussed w/pt: Yes Patient agreeable to treatment: Yes (4) Severe recurrent major depressive disorder with psychotic symptoms Current visit: Yes Status: Acute Plan: Suicide Precautions per unit protocol, Secure weapons Additional Plan: current regimen discussed Risks, benefits, side effects, alternatives discussed w/pt: Yes Patient agreeable to treatment: Yes (5) Suicidal ideation Current visit: No Status: Acute Plan: Suicide Precautions per unit protocol Risks, benefits, side effects, alternatives discussed w/pt: Yes Patient agreeable to treatment: Yes (6) Alcohol dependence with uncomplicated withdrawal Current visit: Yes Status: Acute Additional Plan: begin naltrexone Risks, benefits, side effects, alternatives discussed w/pt: Yes Patient agreeable to treatment: Yes Consult Discharge Plan - Plan Referrals: NONE,PCP [Primary Care Provider] -
[2017-08-12] MEDS: NALTREXONE HCL 50 MG TABLET PO SCH (19:08)
[2017-08-12] MEDS: OLANZapine 10 MG TAB.RAPDIS PO SCH (22:00)
[2017-08-12] MEDS: traZODone 50 MG TABLET PO PRN (22:00)
[2017-08-13] MEDS: FLUoxetine 20 MG CAPSULE PO SCH (08:37)
[2017-08-13] MEDS: Folic Acid 1 MG TABLET PO SCH (08:37)
[2017-08-13] MEDS: Nicotine 21 MG PATCH.TD24 TD SCH (08:38)
[2017-08-13] MEDS: Thiamine (B-1) 100 MG TABLET PO SCH (08:50)
--- NOTE | 2017-08-13 12:43 | Psychiatry Progress Note ---
Date of Encounter: 08/13/17 Time of Encounter: 12:40 Subjective Interval history: Still looks severely depressed. Face very sunken. Unhealthy appearance. Client reports he is still depressed but that suicidal thoughts have lessened. Prozac and Zyprexa seem to be working. Heavy alcohol use. Client estimates 40- 50 beers daily. Has been accepted by [facility] and client anticipates going there Tuesday or Tuesday next week. Client seems to want treatment. Has been years since he reached out for help. Review of Systems Constitutional: Denies: fever, chills, weakness, weight change Eyes: Denies: eye pain, vision change Ears, Nose, Throat: Denies: ear pain, throat pain, dental pain, hearing loss, congestion Cardiovascular: Denies: chest pain, palpitations, dyspnea on exertion Respiratory: Denies: cough, dyspnea, wheezes Gastrointestinal: Denies: abdominal pain, nausea, vomiting, diarrhea, constipation Musculoskeletal: Denies: joint swelling, joint pain Neurological: Denies: headache, weakness, numbness, memory loss Psychiatric: Reports: depression, suicidal ideation, change in appetite, memory loss, difficulty concentrating, hopelessness Objective: Exam Patient orientation: Yes Person, Yes Time, Yes Place Level of alertness: Alert Patient appearance: Appropriate Behavior: calm, cooperative Psychomotor activity: Slowed Eye contact: Maintains Eye Contact Mood description: Depressed Affect description: flat Speech pattern: Normal rate, Normal rhythm, Normal tone Speech volume: Normal Thought process: Linear Thought content: No Suicidal ideation, No Homicidal ideation, No Overt delusions Perceptual disturbances: No Auditory hallucinations, No Visual hallucinations Judgment: Limited Insight: Partial Results - Vital Signs Vital Signs: Temp Pulse Resp BP 97.6 F 88 18 104/77 08/13/17 09:00 08/13/17 09:00 08/13/17 09:00 08/13/17 09:00 Assessment and Plan (1) Severe recurrent major depressive disorder with psychotic symptoms Current visit: Yes Status: Acute Plan: Continue hospitalization, Close observation, Suicide Precautions per unit protocol, Encourage participation in unit milieu, Group Therapy, Monitor sleep, Monitor appetite Risks, benefits, side effects, alternatives discussed w/pt: Yes Patient agreeable to treatment: Yes (2) Alcohol dependence with uncomplicated withdrawal Current visit: Yes Status: Acute Plan: Continue hospitalization, Close observation, Suicide Precautions per unit protocol, Encourage participation in unit milieu, Group Therapy, Monitor sleep, Monitor appetite Risks, benefits, side effects, alternatives discussed w/pt: Yes Patient agreeable to treatment: Yes Consult Discharge Plan - Plan Referrals: [facility] [Outside] (You are going into residential substance abuse treatment at [facility] on discharge from the hospital. While there, clinic staff will open a case for you to become a client, and you will be seen daily by the clinic counselors and machine adjuster leader case trim, both individually and in group. Your mental health treatment needs will be addressed concurrently. You will also be scheduled to see the psychiatric provider for outpatient psychiatric assessment, evaluation of need for medication assisted treatment, and medication management. ) NONE,PCP [Primary Care Provider] -
[2017-08-13] MEDS: NALTREXONE HCL 50 MG TABLET PO SCH (18:28)
[2017-08-13] MEDS: traZODone 50 MG TABLET PO PRN (20:15)
[2017-08-13] MEDS: hydrOXYzine pamoate 25 MG CAPSULE PO PRN (20:16)
[2017-08-13] MEDS: OLANZapine 10 MG TAB.RAPDIS PO SCH (20:16)
[2017-08-14] MEDS: Nicotine 21 MG PATCH.TD24 TD SCH (09:12)
[2017-08-14] MEDS: Thiamine (B-1) 100 MG TABLET PO SCH (09:12)
[2017-08-14] MEDS: FLUoxetine 20 MG CAPSULE PO SCH (09:13)
[2017-08-14] MEDS: Folic Acid 1 MG TABLET PO SCH (09:13)
--- NOTE | 2017-08-14 10:28 | Psychiatry Progress Note ---
Date of Encounter: 08/14/17 Time of Encounter: 10:23 Subjective Interval history: Client complaining of heart burn this morning. Took a prn but also says this happens to him a lot. Unsurprising given heavy alcohol use. Will order scheduled Pepcid. Otherwise, he is clinically the same as yesterday. Endorses depressed mood but denies SI. Committed to rehab. Has been accepted by [facility] and he is expected to be discharged there tomorrow provided they call with an open bed. Staff were expecting to get an update on their openings Tuesday but did not hear anything. Client looks physically unwell. Not complaining of anything beyond GERD but he looks gaunt. Recovery period will be long. Review of Systems Constitutional: Denies: fever, chills, weakness, weight change Eyes: Denies: eye pain, vision change Ears, Nose, Throat: Denies: ear pain, throat pain, dental pain, hearing loss, congestion Cardiovascular: Denies: chest pain, palpitations, dyspnea on exertion Gastrointestinal: Reports: other Musculoskeletal: Denies: joint swelling, joint pain Neurological: Denies: headache, weakness, numbness, memory loss Psychiatric: Reports: depression, suicidal ideation, change in appetite, memory loss, difficulty concentrating, hopelessness Objective: Exam Patient orientation: Yes Person, Yes Time, Yes Place Level of alertness: Alert Patient appearance: Mal-nourished Behavior: calm, cooperative Psychomotor activity: Slowed Eye contact: Maintains Eye Contact Mood description: Depressed Affect description: flat Speech pattern: Normal rate, Normal rhythm, Normal tone Speech volume: Normal Thought process: Linear Thought content: No Suicidal ideation, No Homicidal ideation, No Overt delusions Perceptual disturbances: No Auditory hallucinations, No Visual hallucinations Judgment: Fair Insight: Partial Results - Vital Signs Vital Signs: Temp Pulse Resp BP 97.8 F 111 16 119/89 08/13/17 20:19 08/13/17 20:19 08/13/17 20:19 08/13/17 20:19 Assessment and Plan (1) Severe recurrent major depressive disorder with psychotic symptoms Current visit: Yes Status: Acute Plan: Continue hospitalization, Close observation, Suicide Precautions per unit protocol, Encourage participation in unit milieu, Group Therapy, Monitor sleep, Monitor appetite Risks, benefits, side effects, alternatives discussed w/pt: Yes Patient agreeable to treatment: Yes (2) Alcohol dependence with uncomplicated withdrawal Current visit: Yes Status: Acute Plan: Continue hospitalization, Close observation, Suicide Precautions per unit protocol, Encourage participation in unit milieu, Group Therapy, Monitor sleep, Monitor appetite Risks, benefits, side effects, alternatives discussed w/pt: Yes Patient agreeable to treatment: Yes Consult Discharge Plan - Plan Referrals: [facility] [Outside] (You are going into residential substance abuse treatment at [facility] on discharge from the hospital. While there, clinic staff will open a case for you to become a client, and you will be seen daily by the clinic counselors and child welfare caseworker, both individually and in group. Your mental health treatment needs will be addressed concurrently. You will also be scheduled to see the psychiatric provider for outpatient psychiatric assessment, evaluation of need for medication assisted treatment, and medication management. ) NONE,PCP [Primary Care Provider] -
[2017-08-14] MEDS ORDERED: Famotidine 20 MG TABLET PO ONE (12:30)
[2017-08-14] MEDS: NALTREXONE HCL 50 MG TABLET PO SCH (17:09)
[2017-08-14] MEDS: traZODone 50 MG TABLET PO PRN (21:58)
[2017-08-14] MEDS: OLANZapine 10 MG TAB.RAPDIS PO SCH (21:58)
[2017-08-14] MEDS: Famotidine 20 MG TABLET PO SCH (21:58)
[2017-08-15 08:59] VITALS: BP 129/90
[2017-08-15] MEDS: Famotidine 20 MG TABLET PO SCH (09:12)
[2017-08-15] MEDS: FLUoxetine 20 MG CAPSULE PO SCH (09:12)
[2017-08-15] MEDS: Folic Acid 1 MG TABLET PO SCH (09:12)
[2017-08-15] MEDS: Nicotine 21 MG PATCH.TD24 TD SCH (09:13)
[2017-08-15] MEDS: Thiamine (B-1) 100 MG TABLET PO SCH (09:16)
--- NOTE | 2017-08-15 10:17 | Discharge Summary ---
Date of Encounter: 08/15/17 Time of Encounter: 09:00 Diagnosis - Discharge Diagnosis (1) Severe recurrent major depressive disorder with psychotic symptoms Priority: Primary Status: Acute (2) Alcohol dependence with uncomplicated withdrawal Priority: Secondary Status: Acute (3) Cocaine dependence, uncomplicated Priority: Secondary Status: Chronic (4) Other stimulant dependence, uncomplicated Priority: Secondary Status: Chronic (5) Tobacco use Priority: Secondary Status: Acute Medications - Discharge Medications Prescriptions: Famotidine [Pepcid] 20 mg PO BID #30 tablet FLUoxetine HCl [Prozac] 40 mg PO DAILY #60 capsule Folic Acid 1 mg PO DAILY #30 tablet hydrOXYzine pamoate [HydrOXYzine Pamoate] 25 mg PO TID PRN #90 capsule PRN Reason: Anxiety Naltrexone HCl [Revia] 50 mg PO QPM #30 tablet OLANZapine [Zyprexa Zydis] 10 mg PO HS #30 tab.rapdis Thiamine (B-1) [Vitamin B-1] 100 mg PO DAILY #30 tablet traZODone [TraZODone] 50 mg PO HS PRN #30 tablet PRN Reason: Insomnia Etanercept [Enbrel] 50 mg SQ QWEEK 08/09/17 [History] FLUoxetine HCl [Prozac] 40 mg PO DAILY #60 capsule 08/15/17 [Rx] Famotidine [Pepcid] 20 mg PO BID #30 tablet 08/15/17 [Rx] Folic Acid 1 mg PO DAILY #30 tablet 08/15/17 [Rx] Naltrexone HCl [Revia] 50 mg PO QPM #30 tablet 08/15/17 [Rx] OLANZapine [Zyprexa Zydis] 10 mg PO HS #30 tab.rapdis 08/15/17 [Rx] Thiamine (B-1) [Vitamin B-1] 100 mg PO DAILY #30 tablet 08/15/17 [Rx] hydrOXYzine pamoate [HydrOXYzine Pamoate] 25 mg PO TID PRN #90 capsule 08/15/17 [Rx] traZODone [TraZODone] 50 mg PO HS PRN #30 tablet 08/15/17 [Rx] 3 Allergy/AdvReac Type Severity Reaction Status Date / Time No Known Allergies Allergy Verified 08/08/17 16:20 Results Procedures and tests throughout hospitalization: Completed Lab Orders Category Date Time Status Hgb A1C Routine Lab 08/12/17 08:03 Completed Provider Date of admission: 08/10/17 11:22 Primary care physician: PCP NONE Discharging clinician: Trang Vasquez Assessment and Plan - Patient/Caregiver Discharge Instructions Activity: resume usual activities as tolerated Diet: regular diet - Follow up Plan Follow up with: [facility] [Outside] (You are going into residential substance abuse treatment at [facility] on discharge from the hospital. While there, clinic staff will open a case for you to become a client, and you will be seen daily by the clinic counselors and immigration case worker, both individually and in group. Your mental health treatment needs will be addressed concurrently. You will also be scheduled to see the psychiatric provider for outpatient psychiatric assessment, evaluation of need for medication assisted treatment, and medication management. ) NONE,PCP [Primary Care Provider] - Functional capacity at discharge: independent ambulation Overall status at discharge: Stable Disposition: Transfer Other Hospital Course Hospital course: Mr. Rosas is a 31 year old male who is seen today for follow-up of depression and substance abuse. He was admitted to the hospital several days ago with severe depression and SI. Patient was admitted to for psychiatric stabilization. He was offered group and individual therapy. He was monitored for withdrawal. He was placed on Prozac 20mg po daily which he tolerated well. Patient was also placed on su[facility]idospital. precautions per unit protocol. Patient was cooperative with staff and peers while in the hiHe reports he did note some mild improvement in mood. He now denies suicidal ideation and states that he feels ready for the next phase of his treatment. The trazodone is helpful for sleep. He denies side effects. He is agreeable to transfer to [facility] for further care. He is discharged in stable conditions. Does patient wish to continue nicotine replacement upon disc: No - Time Spent with Patient Total time spent providing and/or coordinating discharge services: Greater than 30 minutes Quality - Multiple Antipsychotics Patient discharged on 2 or more antipsychotic medications: No Procedures - Procedures Procedures: Medication Management, Crisis Stabilization, Supportive Therapy, Group Therapy, Psychoeducational Therapy Mental Status Exam - Mental Status Exam Patient orientation: Yes Person, Yes Time, Yes Place Level of alertness: Alert Patient appearance: Appropriate, Well Groomed Behavior: calm, cooperative Psychomotor activity: Normal Eye contact: Minimal Contact Mood description: Depressed Affect description: constricted Speech pattern: Normal rate, Normal rhythm, Normal tone Speech Volume: Normal Thought process: Linear, Goal Oriented Thought Content: No Suicidal ideation, No Homicidal ideation, No Overt delusions Perceptual Disturbances: No Auditory hallucinations, No Visual hallucinations Judgment: Limited Insight: Partial
== END 2017-08-15 17:30 | disposition other institution (70) | DRG 751 ==
LOC: 1ANU 11:22
PROVIDERS: ADMIT Psychiatry & Neurology Forensic Psychiatry; ATTEND Psychiatry & Neurology Forensic Psychiatry

== ENCOUNTER 2020-03-30 17:22 | Inpatient (IN) ==
[2020-03-30] MEDS ORDERED: Gadolinium Contrast Agent (WT Based) IV PRN (19:59)
[2020-03-30] MEDS ORDERED: Naloxone 0.4 MG/ML INJ IVP PRN (20:01)
[2020-03-30] MEDS ORDERED: Acetaminophen 325 MG TABLET PO PRN (20:01)
[2020-03-30] MEDS ORDERED: Ondansetron ODT 4 MG TAB.RAPDIS SL PRN (20:01)
[2020-03-30] MEDS ORDERED: *HR* Heparin 5,000 UNIT/ML VIAL SQ ONE (20:04)
[2020-03-30] MEDS ORDERED: Vancomycin 0 MG in 0.9 % Sodium Chloride 250 ML IVPB SCH (21:00)
[2020-03-30] MEDS: Piperacillin/Tazobactam 3.375 GM in 0.9 % Sodium Chloride Mini Bag 100 ML IVPB SCH (22:38)
[2020-03-30] MEDS: Nicotine 21 MG PATCH.TD24 TD SCH (22:38)
[2020-03-30 23:53] LABS: Amphetamine Screen,Urine Positive ng/mL (Cutoff=1000); Barbiturate Screen,Urine Negative ng/mL (Cutoff=200); Benzodiazepines Screen,Urine Negative ng/mL (Cutoff=200); Cannabinoid Screen,Urine Negative ng/mL (Cutoff = 50); Cocaine Screen,Urine Negative ng/mL (Cutoff= 300); Opiate Screen,Urine Positive ng/mL (Cutoff=300); Phencyclidine Screen,Urine Negative ng/mL (Cutoff=25)
[2020-03-31] MEDS: Piperacillin/Tazobactam 3.375 GM in 0.9 % Sodium Chloride Mini Bag 100 ML IVPB SCH ×3 (05:38→21:57)
[2020-03-31 06:24] LABS: Basophils # 0.1 K/mcL (0.0-0.2); Eosinophils # 0.4 K/mcL (0.0-0.6); Eosinophils % 4.3 %; Hematocrit 39.7 % (37.5-50.1); Hemoglobin 12.4 g/dL (12.9-16.9); Immature Granulocytes % 0.3 % (0-4); Lymphocytes # 2.2 K/mcL (0.6-4.6); Lymphocytes % 23.7 %; Mean Corpuscular HGB Conc 31.2 g/dL (31.6-35.5); Mean Corpuscular Volume 86.3 fL (83.0-100.0); Mean Platelet Volume 9.3 fL (9.4-12.4); Monocytes # 0.7 K/mcL (0.0-1.3); Monocytes % 7.5 %; Neutrophils # 5.8 K/mcL (1.6-8.9); Platelet Count 480 K/mcL (140-400); Red Cell Distribution Width 13.2 % (11.5-14.5); Segmented Neutrophils % 63.2 %; White Blood Count 9.2 K/mcL (4.3-11.1)
[2020-03-31 06:29] LABS: Prothrombin Time 11.2 Seconds (9.4-12.1)
[2020-03-31] MEDS: Nicotine 21 MG PATCH.TD24 TD SCH (08:35)
[2020-03-31 09:00] LABS: C-Reactive Protein 6 mg/L (Less than 10)
[2020-03-31 09:23] LABS: BUN/Creatinine Ratio 8 (6-26); Blood Urea Nitrogen 6 mg/dL (6-20); Calcium 8.7 mg/dL (8.6-10.3); Carbon Dioxide 25 mEq/L (23-29); Chloride 108 mEq/L (98-107); Glucose 87 mg/dL (70-105); Magnesium 2.1 mg/dL (1.6-2.6); Osmolality,Calculated 285 (280-300); Potassium 3.8 mEq/L (3.5-5.1); Sodium 139 mEq/L (136-145); eGFR For African Americans > 60 (> 60); eGFR For Non-African Americans > 60 (> 60)
[2020-03-31] MEDS ORDERED: *HR* LORazepam 2 MG/ML VIAL IVP PRN ×6 (14:05→20:29)
[2020-03-31] MEDS ORDERED: Thiamine (B-1) 100 MG, Folic Acid 1 MG, MVI, adult with vitamin K 10 ML in 0.9 % Sodi... IVPB SCH (18:00)
[2020-03-31] MEDS ORDERED: Lidocaine/EPI 1:100k 1% 20 ML VIAL ONE (18:28)
[2020-03-31] MEDS ORDERED: Albuterol 2.5 MG/3 ML NEBULIZER IH PRN ×2 (18:59→20:29)
[2020-03-31] MEDS ORDERED: Naloxone 0.4 MG/ML INJ IVP PRN ×4 (18:59→20:29)
[2020-03-31] MEDS ORDERED: Ondansetron 4 MG/2 ML VIAL IVP ONE ×2 (18:59→20:29)
[2020-03-31] MEDS ORDERED: *HR* HYDROmorphone PF 0.5 MG/0.5 ML SYRINGE IVP PRN ×2 (18:59→20:29)
[2020-03-31] MEDS ORDERED: *HR* FentaNYL (PF) 100 MCG/2 ML VIAL IVP PRN ×2 (18:59→20:29)
[2020-03-31] MEDS ORDERED: Ringers Solution, Lactated 1,000 ML IVC SCH (19:00)
[2020-03-31] MEDS ORDERED: Dexamethasone 4 MG/ML VIAL ONE (19:09)
[2020-03-31] MEDS ORDERED: Lidocaine -MPF 2% 2 ML VIAL ONE ×2 (19:09)
[2020-03-31] MEDS ORDERED: *HR* Propofol 200 MG/20 ML VIAL IVP ONE (19:09)
[2020-03-31] MEDS ORDERED: Ondansetron 4 MG/2 ML VIAL ONE (19:09)
[2020-03-31] MEDS ORDERED: *HR* HYDROMORPHONE 2 MG/ML VIAL ONE (19:17)
[2020-03-31] MEDS ORDERED: Ondansetron ODT 4 MG TAB.RAPDIS SL PRN (20:29)
[2020-03-31] MEDS ORDERED: Acetaminophen 325 MG TABLET PO PRN (20:29)
[2020-03-31] MEDS ORDERED: Gadolinium Contrast Agent (WT Based) IV PRN (20:29)
[2020-04-01 05:29] LABS: Hematocrit 39.7 % (37.5-50.1); Hemoglobin 12.6 g/dL (12.9-16.9); Mean Corpuscular HGB Conc 31.7 g/dL (31.6-35.5); Mean Corpuscular Hemoglobin 27.5 pg (28.0-33.3); Mean Corpuscular Volume 86.5 fL (83.0-100.0); Mean Platelet Volume 9.4 fL (9.4-12.4); Platelet Count 484 K/mcL (140-400); Red Blood Count 4.59 M/mcL (4.19-5.50); Red Cell Distribution Width 13.1 % (11.5-14.5)
[2020-04-01 05:30] LABS: White Blood Count 15.8 K/mcL (4.3-11.1)
[2020-04-01 05:39] LABS: BUN/Creatinine Ratio 11 (6-26); Blood Urea Nitrogen 11 mg/dL (6-20); Calcium 8.8 mg/dL (8.6-10.3); Carbon Dioxide 29 mEq/L (23-29); Chloride 104 mEq/L (98-107); Glucose 184 mg/dL (70-105); Osmolality,Calculated 284 (280-300); Potassium 4.4 mEq/L (3.5-5.1); Sodium 135 mEq/L (136-145); Vancomycin,Trough 6 mcg/mL (5-10); eGFR For African Americans > 60 (> 60); eGFR For Non-African Americans > 60 (> 60)
[2020-04-01] MEDS: Piperacillin/Tazobactam 3.375 GM in 0.9 % Sodium Chloride Mini Bag 100 ML IVPB SCH ×3 (05:55→20:42)
[2020-04-01] MEDS ORDERED: Vancomycin 1,500 MG/265 ML IV.SOLN IVPB SCH (06:15)
[2020-04-01] MEDS: Ringers Solution, Lactated 1,000 ML IVC SCH ×3 (08:51→16:16)
[2020-04-01] MEDS: Nicotine 21 MG PATCH.TD24 TD SCH (09:31)
[2020-04-01] MEDS: Folic Acid 1 MG TABLET PO SCH (14:04)
[2020-04-01] MEDS: Thiamine (B-1) 100 MG TABLET PO SCH (14:04)
[2020-04-01] MEDS ORDERED: Thiamine (B-1) 100 MG, Folic Acid 1 MG, MVI, adult with vitamin K 10 ML in 0.9 % Sodi... IVPB SCH (18:00)
[2020-04-02] MEDS: Piperacillin/Tazobactam 3.375 GM in 0.9 % Sodium Chloride Mini Bag 100 ML IVPB SCH ×3 (05:08→19:50)
[2020-04-02 06:35] LABS: Hematocrit 39.4 % (37.5-50.1); Hemoglobin 12.6 g/dL (12.9-16.9); Mean Corpuscular Hemoglobin 27.6 pg (28.0-33.3); Mean Corpuscular Volume 86.2 fL (83.0-100.0); Mean Platelet Volume 9.4 fL (9.4-12.4); Platelet Count 503 K/mcL (140-400); Red Blood Count 4.57 M/mcL (4.19-5.50); Red Cell Distribution Width 13.6 % (11.5-14.5); White Blood Count 12.2 K/mcL (4.3-11.1)
[2020-04-02 06:49] LABS: BUN/Creatinine Ratio 9 (6-26); Blood Urea Nitrogen 8 mg/dL (6-20); Calcium 8.9 mg/dL (8.6-10.3); Carbon Dioxide 26 mEq/L (23-29); Chloride 107 mEq/L (98-107); Glucose 95 mg/dL (70-105); Osmolality,Calculated 286 (280-300); Sodium 139 mEq/L (136-145); eGFR For African Americans > 60 (> 60); eGFR For Non-African Americans > 60 (> 60)
[2020-04-02] MEDS: Folic Acid 1 MG TABLET PO SCH (08:59)
[2020-04-02] MEDS: Nicotine 21 MG PATCH.TD24 TD SCH (08:59)
[2020-04-02] MEDS: Thiamine (B-1) 100 MG TABLET PO SCH (08:59)
[2020-04-03] MEDS: Piperacillin/Tazobactam 3.375 GM in 0.9 % Sodium Chloride Mini Bag 100 ML IVPB SCH (05:05)
[2020-04-03 06:00] LABS: Hematocrit 41.9 % (37.5-50.1); Hemoglobin 13.3 g/dL (12.9-16.9); Mean Corpuscular HGB Conc 31.7 g/dL (31.6-35.5); Mean Corpuscular Hemoglobin 28.2 pg (28.0-33.3); Mean Platelet Volume 9.4 fL (9.4-12.4); Platelet Count 453 K/mcL (140-400); Red Blood Count 4.71 M/mcL (4.19-5.50); Red Cell Distribution Width 13.3 % (11.5-14.5); White Blood Count 9.6 K/mcL (4.3-11.1)
[2020-04-03 06:20] LABS: BUN/Creatinine Ratio 10 (6-26); Blood Urea Nitrogen 9 mg/dL (6-20); Carbon Dioxide 31 mEq/L (23-29); Chloride 103 mEq/L (98-107); Glucose 96 mg/dL (70-105); Osmolality,Calculated 287 (280-300); Sodium 139 mEq/L (136-145); eGFR For African Americans > 60 (> 60); eGFR For Non-African Americans > 60 (> 60)
[2020-04-03] MEDS: Folic Acid 1 MG TABLET PO SCH (09:08)
[2020-04-03] MEDS: Thiamine (B-1) 100 MG TABLET PO SCH (09:08)
[2020-04-03] MEDS: Nicotine 21 MG PATCH.TD24 TD SCH (09:09)
[2020-04-03] MEDS ORDERED: ceFAZolin 2,000 MG in 0.9 % Sodium Chloride 100 ML IVPB SCH (13:00)
[2020-04-03] MEDS ORDERED: Lidocaine/EPI 1:100k 1% 20 ML VIAL ONE (15:09)
[2020-04-03] MEDS ORDERED: *HR* Midazolam HCl 2 MG/2 ML VIAL ONE (15:22)
[2020-04-03] MEDS ORDERED: *HR* FentaNYL (PF) 100 MCG/2 ML VIAL ONE (15:22)
[2020-04-03] MEDS ORDERED: *HR* Propofol 200 MG/20 ML VIAL IVP ONE (15:22)
[2020-04-03] MEDS ORDERED: Lidocaine -MPF 2% 2 ML VIAL ONE (15:24)
[2020-04-03] MEDS ORDERED: Dexamethasone 4 MG/ML VIAL ONE (15:28)
[2020-04-03] MEDS ORDERED: Ondansetron 4 MG/2 ML VIAL ONE (15:28)
[2020-04-03] MEDS ORDERED: Ondansetron 4 MG/2 ML VIAL IVP ONE ×2 (15:57→18:06)
[2020-04-03] MEDS ORDERED: *HR* OxyCODONE Immed Rel 5 MG TABLET PO PRN (15:57)
[2020-04-03] MEDS ORDERED: *HR* Promethazine 25 MG/ML VIAL IVP PRN ×2 (15:57→18:06)
[2020-04-03] MEDS: *HR* HYDROmorphone PF 0.5 MG/0.5 ML SYRINGE IVP PRN ×4 (17:26→17:46)
[2020-04-03] MEDS ORDERED: Ringers Solution, Lactated 1,000 ML IVC SCH (18:06)
[2020-04-03] MEDS ORDERED: Ondansetron ODT 4 MG TAB.RAPDIS SL PRN (18:06)
[2020-04-03] MEDS ORDERED: Albuterol 2.5 MG/3 ML NEBULIZER IH PRN (18:06)
[2020-04-03] MEDS ORDERED: Naloxone 0.4 MG/ML INJ IVP PRN ×2 (18:06)
[2020-04-03] MEDS ORDERED: Acetaminophen 325 MG TABLET PO PRN (18:06)
[2020-04-03] MEDS: ceFAZolin 2,000 MG in 0.9 % Sodium Chloride 100 ML IVPB SCH (20:17)
[2020-04-04] MEDS ORDERED: *HR* LORazepam 2 MG/ML VIAL IVP ONE (00:01)
[2020-04-04] MEDS ORDERED: *HR* LORazepam 2 MG/ML VIAL IVP PRN ×2 (00:02)
[2020-04-04] MEDS: ceFAZolin 2,000 MG in 0.9 % Sodium Chloride 100 ML IVPB SCH ×2 (05:22→12:28)
[2020-04-04] MEDS ORDERED: Nicotine 21 MG PATCH.TD24 TD SCH (09:00)
[2020-04-04] MEDS ORDERED: Folic Acid 1 MG TABLET PO SCH (09:00)
[2020-04-04] MEDS ORDERED: Thiamine (B-1) 100 MG TABLET PO SCH (09:00)
[2020-04-04 11:33] VITALS: BP 138/79
== END 2020-04-04 14:35 | disposition home or self-care (01) | DRG 316 ==
LOC: 3NENU → SUATTDRO 19:01 → OBSVTOIN 19:01
PROVIDERS: ADMIT Family Medicine; ATTEND Internal Medicine